=== PATIENT | female | born 1970 | race Caucasian/White ===

== ENCOUNTER 2019-05-26 06:14 | Day surgery (SDC) | payer OTHER ==
[2019-05-26] MEDS ORDERED: DEXAMETHASONE 4 MG/ML VIAL IVP ONE (06:15)
[2019-05-26] MEDS ORDERED: PROPOFOL 200 MG/20 ML VIAL IVP ONE (06:15)
[2019-05-26] MEDS ORDERED: fentaNYL 100 MCG/2 ML VIAL IVP ONE (06:15)
[2019-05-26] MEDS ORDERED: GLYCOPYRROLATE 1 MG/5 ML VIAL IVP ONE (06:15)
[2019-05-26] MEDS ORDERED: CEFAZOLIN SODIUM IN 0.9 % NACL 2 GM/100 ML BAG IV ONE (06:19)
[2019-05-26] MEDS ORDERED: LACTATED RINGERS 1,000 ML IV ONE ×2 (06:38→08:05)
[2019-05-26] MEDS ORDERED: BUPIVACAINE 0.25% PF 30 ML VIAL ONE (06:46)
[2019-05-26] MEDS ORDERED: LIDOCAINE 1%-EPI 1:100000 20 ML MDV ONE (06:46)
--- NOTE | 2019-05-26 07:11 | ANESTHESIA ---
Pre-Anesthesia VS, & Labs - Diagnosis perianal carbuncle - Procedure excision perianal lesion Vital Signs: Temp Pulse Resp BP Pulse Ox 36.3 C L 63 18 108/82 H 100 05/26/19 06:29 05/26/19 06:29 05/26/19 06:29 05/26/19 06:29 05/26/19 06:29 Height 5 ft 1 in Weight (kg) 64.1 kg - NPO >8 hours - Is Patient ?: No Home Medications and Allergies Home Medications: Ambulatory Orders Levothyroxine Sodium 112 mcg PO DAILY 05/13/19 Loratadine [Claritin] 10 mg PO DAILY 05/13/19 Multivitamin [Daily Multiple Vitamin] 1 each PO DAILY 05/13/19 Fluticasone [Flonase] 1 sprays TOM BID 05/26/19 Levothyroxine Sodium 112 mcg PO DAILY 05/13/19 Loratadine [Claritin] 10 mg PO DAILY 05/13/19 Multivitamin [Daily Multiple Vitamin] 1 each PO DAILY 05/13/19 Fluticasone [Flonase] 1 sprays TOM BID 05/26/19 Allergies/Adverse Reactions: Allergies Allergy/AdvReac Type Severity Reaction Status Date / Time No Known Drug Allergies Allergy Verified 05/26/19 06:40 Anes History & Medical History - Anesthetic History Anesthesia Complications: reports: No previous complications ("slow to wake up") Family history of Anesthesia Complications: Denies Family history of Malignant Hyperthermia: Denies - Medical History Cardiovascular: reports: None Pulmonary: reports: None Gastrointestinal: reports: None Urinary: reports: None Musculoskeletal: reports: None Endocrine/Autoimmune: reports: HyPOthyroidism Skin: reports: None Psychosocial: reports: Alcohol (occasional), Cannabis (CBD oil for pain) - Surgical History General: Cholecystectomy, Other Gynecologic: Hysterectomy, Other Exam General: Oriented x3, Cooperative Dental: WNL Mouth Openin Fingerbreadth Neck Mobility: Normal Mallampati classification: I Thyromental Distance: 4-6 cm Respiratory: Lungs clear, Normal breath sounds, No respiratory distress Cardiovascular: Regular rate Neurological: Normal speech Mental/Cognitive Status: Alert/Oriented X3, Normal for patient Cognitive Status: Within normal limits Plan Anesthesia Type: General Consent for Procedure(s) Verified and Reviewed: Yes Code Status: Attempt Resuscitation ASA classification: 1-Healthy patient Is this case an emergency?: No
[2019-05-26] MEDS ORDERED: BUPIVACAINE 0.5% PF 30 ML VIAL ONE (07:12)
[2019-05-26] MEDS ORDERED: BACITRACIN ZINC OINT 1 PACKET TOP ONE (07:57)
[2019-05-26] MEDS ORDERED: LIDOCAINE 1%-EPI 1:100000 30 ML MDV SUBQ ONE (08:04)
[2019-05-26] MEDS ORDERED: oxyCODONE 5 MG TABLET PO PRN (08:04)
[2019-05-26] MEDS ORDERED: ONDANSETRON 4 MG/2 ML VIAL IVP PRN (08:04)
[2019-05-26] MEDS ORDERED: BUPIVACAINE 0.5% PF 30 ML VIAL INFIL ONE (08:07)
--- NOTE | 2019-05-26 08:21 | OPERATIVE REPORT ---
Operative Report - General Procedure Date: 05/26/19 Planned Procedure: Excision of a perianal lesion Pre-Op Diagnosis: Perianal lesion/carbuncle Procedure Performed: Excision of a perianal lesion Post Op Diagnosis: Perianal lesion/carbuncle - Procedure Note Primary Surgeon: Sandy Anesthesia Provider: DAISY Camacho Anesthesia Technique: General LMA, Local Estimated Blood Loss (mL): 1 Indications: Repeatedly infected and draining perianal lesion Findings: 1 x 1.5 cm carbuncle Complications: None apparent - Other Other Information/Narrative: After obtaining informed consent, The patient is brought the operating room and placed in the supine position on the operating table. Following successful induction of general anesthesia, appropriate padding of all bony prominences, and placement appropriate monitors, the legs were placed in Angel stirrups. The perineal region was prepped and draped in the standard surgical fashion. A timeout was held per scope protocol. All elements of the surgical safety checklist were followed before, during, and after the procedure. Following infiltration with local anesthetic to create a field block,An elliptical incision was created around the palpable lesion at the 5 o'clock position. The lesion was removed in total and passed from the table as a specimen. The wound was then checked for hemostasis and closed with running 3-0 chromic suture. All sponge, needle, and instrument counts were correct at the conclusion of the case. The patient was allowed awaken from anesthesia without difficulty and taken to the postanesthesia care unit in good condition.
[2019-05-26 09:09] VITALS: BP 106/63
== END 2019-05-26 06:15 | disposition home or self-care (01) ==
LOC: SDS 06:14
PROVIDERS: ATTEND Surgery
PROC: 0JBB0ZZ Excision of Perineum Subcutaneous Tissue and Fascia, Open Approach (ICD-10-PCS; principal; 2019-05-26 07:30)
DX: D23.5 Other benign neoplasm of skin of trunk (principal); E03.9 Hypothyroidism, unspecified
CPT/HCPCS: 46922; A9270; J0690; J7120

== ENCOUNTER 2020-03-14 15:38 | Outpatient (CLI) | payer OTHER ==
--- NOTE | 2020-03-15 14:17 | MRI Report ---
PROCEDURE: Pelvis W/O INDICATIONS: ABDOMINAL DISTENSION, US DID NOT VISUALIZE OVARIES TECHNIQUE: Axial T1, T1 fat saturation, and T2, and coronal T2 obtained through the pelvis. COMPARISON: None available. FINDINGS: Uterus: Surgically absent. Ovaries: The ovaries are within normal size limits bilaterally. There is a small thin-walled cyst wit hin the right ovary measuring up to 1.2 cm likely representing a prominent follicle. No adnexal markus s. Other pelvic structures: Bladder demonstrates normal wall thickness. Distal ureters are nondilated. T here is a small thin-walled cystic lesion adjacent to the right aspect of the urethra measuring up to 0.7 x 0.6 cm. Visualized bowel loops are normal in caliber. No intraperineal free fluid within the p prema. No inguinal hernias. No pelvic or inguinal lymphadenopathy by size criteria. Bones: Visualized osseous structures demonstrate no suspicious focal lesions. There is mild facet art hropathy within the lower lumbar spine. IMPRESSION: 1. Normal appearance of the ovaries bilaterally with a small thin-walled right ovarian cyst likely re presenting a prominent follicle or follicular cyst. 2. Small thin-walled cyst adjacent to the urethra. The findings may represent a small ureteral divert iculum. Recommend correlation with clinical symptoms and if indicated further evaluation may be obtai ynes with contrast-enhanced sequences including post void imaging. Reviewed by: Jhoan Mckeon MD on 03/15/2020 2:16 PM PDT Approved by: Jhoan Mckeon MD on 03/15/2020 2:16 PM PDT Station ID: [id number]
== END 2020-03-14 15:39 | disposition home or self-care (01) ==
LOC: DI 15:38
PROVIDERS: ATTEND Nurse Practitioner Family
DX: N83.201 Unspecified ovarian cyst, right side (principal); N36.8 Other specified disorders of urethra
CPT/HCPCS: 72195

== ENCOUNTER 2020-07-06 11:52 | Outpatient (CLI) | payer OTHER ==
--- NOTE | 2020-07-06 14:58 | Mammography Report ---
BILATERAL DIGITAL DIAGNOSTIC MAMMOGRAM 3D/2D: 07/06/2020 CLINICAL: Palpable left breast lump and focal pain. Comparison is made to exams dated: 07/06/2020 ultrasound - [facility], 05/31/2020 ul trasound, 04/23/2018 mammogram, and 04/04/2017 mammogram - [facility]. There are scatt ered fibroglandular elements in both breasts. No significant masses, calcifications, or other findings are seen in either breast. IMPRESSION: INCOMPLETE: NEEDS ADDITIONAL IMAGING EVALUATION There is no abnormality seen in the left breast to correspond with the palpable abnormality in the up per outer quadrant, however, ultrasound is recommended. There is no abnormality seen in the left breast to correspond with the tenderness in the sub-areolar depth, however, ultrasound is recommended. Ultrasound will be performed immediately following the current exam. This exam was interpreted at Station ID: [id number]. NOTE: For mammograms, a report in lay terms will be sent to the patient. Approximately 15% of breast malignancies will not be visualized mammographically. In the management of a palpable breast mass, a negative mammogram must not discourage biopsy of a clinically suspicious lesion. Electronically Signed By: Jhoan Mckeon M.D. ddp/:07/06/2020 13:23:48 ACR BI-RADS Category 0: Incomplete 3340F PARENCHYMAL PATTERN: (A) - The breast(s) demonstrate(s) scattered fibroglandular densities. BI-RADS CATEGORY: (0) - 0 Ultrasound [id number] Immediate follow-up LATERALITY: (B)
--- NOTE | 2020-07-06 14:58 | Ultrasound Report ---
LIMITED ULTRASOUND OF LEFT BREAST: 07/06/2020 CLINICAL: Palpable left breast lump. Comparison is made to exams dated: 05/31/2020 ultrasound, 04/23/2018 mammogram, and 04/04/2017 mammog [facility]. Real-time ultrasound of the left breast 2 o'clock, and retroareolar regions was performed on the are a of interest. IMPRESSION: NEGATIVE There is no sonographic evidence of malignancy. There is no abnormality seen in the left breast to correspond with the palpable abnormality at 2 o'cl ock, however, clinical followup is recommended. There is no abnormality seen in the left breast to correspond with the tenderness in the sub-areolar depth, however, clinical followup is recommended. A 1 year screening mammogram is recommended. This exam was interpreted at Station ID: [id number]. Electronically Signed By: Jhoan Mckeon M.D. ddp/:07/06/2020 13:11:45 Ultrasound BI-RADS: 1 Negative BI-RADS CATEGORY: (1) - 1 RECOMMENDATION: (ANNUAL) - Recommend routine annual screening mammography. [id number] 1 year screening LATERALITY: (B)
== END 2020-07-06 11:53 | disposition home or self-care (01) ==
LOC: DI 11:52
PROVIDERS: ATTEND Nurse Practitioner Family
DX: N63.21 Unspecified lump in the left breast, upper outer quadrant (principal)